=== PATIENT | female | born 1945 | race Asian ===

== ENCOUNTER 2017-06-27 10:23 | Observation (INO) | payer MEDICARE ==
[~2017-06-27] VITALS: Ht 160 cm; Wt 70.0 kg
[2017-06-27] VITALS (8 sets, daily range): BP systolic 113–146; BP diastolic 63–70; PULSE 72–79; RESP 16–20; TEMP 98.4–98.8; O2SAT 93–100
[~2017-06-27 10:23] MED LIST: AMLO10 PO; COZA25TA PO; GEMF600 PO; GEMF600T PO; GLUCTAB2 PO; LEVO112T2 PO; METO50TA PO; PANT40TA3 PO; RALO1TAB PO; REST0.05 EACH EYE; TEMA15CA PO; ZOFR4TAB PO
--- NOTE | 2017-06-27 10:55 | PD ---
HPI Chief Complaint: Dizziness Time Seen by Provider: 10:55 Travel History International Travel<30 days: No Contact w/Intl Traveler<30days: No Traveled to known affect area: No History of Present Illness HPI 71-year-old female came to the emergency room with history of intense dizziness that started at around 7:30 to 8 AM. Patient says she woke up at 5:00 and at that time she was fine. She waited for 45 minutes for it to get better but when it didn't she called 911. She has been nauseous but no vomiting. Vital signs are stable. She has had similar symptoms in the past but never had to come to the emergency room. She was able to answer questions appropriately. Vital signs are stable. A stroke alert was called by me since she was within the time window for TPA. PFSH Past Medical History Narrative Medical List of her past medical, surgical, social and family history was reviewed from the nursing note. Blood Disorders: No Depression: Yes Cardiovascular Problems: Yes Diabetes: Yes Diminished Hearing: No Fibromyalgia: Yes GERD: Yes Genitourinary: Yes (BLADDER PROLAPSE) Hypertension: Yes Thyroid Disease: Yes Triglycerides - High: Yes ?: Not Menopausal: Yes Past Surgical History Gynecologic Surgery: Yes (MASTECTOMY RIGHT LEFT LUMPECTOMY) Mastectomy: Yes Social History Alcohol Use: No Tobacco Use: No Substance Use: No Allergies-Medications (Allergen,Severity, Reaction): Coded Allergies: codeine (Unverified Adverse Reaction, Unknown, SENSITIVE, 06/28/17) Comments List of her allergies reviewed from the nursing note. Reported Meds & Prescriptions Reported Meds & Active Scripts Active Reported Norvasc (Amlodipine Besylate) 10 Mg Tab 10 Mg PO DAILY Restasis Opth 0.05% (Cyclosporine Opth 0.05%) 0.05% Emul 1 Drop EACH EYE BID Gemfibrozil 600 Mg Tab 600 Mg PO BIDAC Take 30 minutes prior to breakfast and dinner. Levothyroxine (Levothyroxine Sodium) 112 Mcg Tab 112 Mcg PO DAILY Cozaar (Losartan Potassium) 25 Mg Tab 25 Mg PO DAILY Glucophage XR (Metformin HCl) 750 Mg Floyd 1,500 Mg PO DAILY With evening meal Metoprolol Tartrate 50 Mg Tab 50 Mg PO BID Zofran (Ondansetron HCl) 4 Mg Tab 4 Mg PO Q6HR PRN Pantoprazole (Pantoprazole Sodium) 40 Mg Tab 40 Mg PO DAILY Raloxifene (Raloxifene HCl) 60 Mg Tab 60 Mg PO DAILY Temazepam 15 Mg Cap 15 Mg PO HS PRN Narrative Medication List of her home medications reviewed from the nursing note. Review of Systems Except as stated in HPI: all other systems reviewed are Neg Physical Exam Narrative GENERAL: Awake, alert, anxious SKIN: Focused skin assessment warm/dry. HEAD: Atraumatic. Normocephalic. EYES: Pupils equal and round. No scleral icterus. No injection or drainage. ENT: No nasal bleeding or discharge. Mucous membranes pink and moist. NECK: Trachea midline. No JVD. CARDIOVASCULAR: Regular rate and rhythm. No murmur appreciated. RESPIRATORY: No accessory muscle use. Clear to auscultation. Breath sounds equal bilaterally. GASTROINTESTINAL: Abdomen soft, non-tender, nondistended. Hepatic and splenic margins not palpable. MUSCULOSKELETAL: No obvious deformities. No clubbing. No cyanosis. No edema. NEUROLOGICAL: Awake and alert. No obvious cranial nerve deficits. Left upper and lower extremity ataxia. Normal speech. NIH stroke score of 2 PSYCHIATRIC: Appropriate mood and affect; insight and judgment normal. Data Data Last Documented VS Vital Signs Date Time Temp Pulse Resp B/P Pulse Ox O2 Delivery O2 Flow Rate FiO2 06/27/17 12:37 79 16 146/70 99 Nasal Cannula 2 06/27/17 10:26 98.8 Orders Activity Bed Rest (06/27/17 ) I-Stat Creatinine (06/27/17 11:30) I-Stat Profile (06/27/17 11:30) Prothrombin Time / Inr (Pt) (06/27/17 11:30) Act Partial Throm Time (Ptt) (06/27/17 11:30) Complete Blood Count With Diff (06/27/17 11:30) Fibrinogen (06/27/17 11:30) Creatine Kinase (Cpk) (06/27/17 11:30) Troponin I (06/27/17 11:30) Ua Includes Microscopic (06/27/17 11:30) Drug Screen, Random Urine (06/27/17 11:30) Type And Screen (06/27/17 11:30) Ct Brain W/O Iv Contrast(Rout) (06/27/17 ) Consult Neurology (06/27/17 ) Blood Glucose (06/27/17 11:30) Ecg Monitoring (06/27/17 11:30) Neuro Checks Q2HX12,Q4H (06/27/17 11:30) Iv Access Insert/Monitor (06/27/17 11:30) NPO (06/27/17 11:30) Oximetry (06/27/17 11:30) Oxygen Administration (06/27/17 11:30) Sodium Chlor 0.9% 1000 Ml Inj (Ns 1000 M (06/27/17 11:30) Resp Oxygen Amor C Titrat 1-4 L (06/27/17 11:30) Cath For Specimen (06/27/17 11:30) (Hub Use Only)Inp Phy Cons/Ref (06/27/17 ) Mra Brain W/O Contrast (Cow) (06/27/17 ) Ondansetron Inj (Zofran Inj) (06/27/17 12:00) Meclizine (Antivert) (06/27/17 12:00) Place In Observation (06/27/17 ) Code Status (06/27/17 13:06) Vital Signs (Adult) Q4H (06/27/17 13:06) Activity Oob With Assistance (06/27/17 13:06) Wood Cut Engraver / Telemetry .CONTINUOUS (06/27/17 13:06) Diet Heart Healthy (06/27/17 Lunch) Sodium Chloride 0.9% Flush (Ns Flush) (06/27/17 13:15) Sodium Chloride 0.9% Flush (Ns Flush) (06/27/17 21:00) Acetaminophen (Tylenol) (06/27/17 13:15) Ondansetron Inj (Zofran Inj) (06/27/17 13:15) Temazepam (Restoril) (06/27/17 13:15) Basic Metabolic Panel (Bmp) (06/28/17 06:00) Complete Blood Count With Diff (06/28/17 06:00) Chest, Single Ap (06/27/17 13:06) Electrocardiogram (06/27/17 13:06) Pt Request For Service (06/27/17 13:06) Scd Bilateral/Knee High DAVID.BID (06/27/17 13:06) Naloxone Inj (Narcan Inj) (06/27/17 13:15) Magnesium Hydroxide Liq (Milk Of Magnesi (06/27/17 13:15) Meclizine (Antivert) (06/27/17 14:00) Rapid Plasma Regin (Rpr) W Ttr (06/27/17 13:09) Ammonia (06/27/17 13:09) Holter Monitor Recording (06/27/17 ) Us Carotid Arteries Comp Bilat (06/27/17 ) Aspirin Chew (Aspirin Chew) (06/28/17 09:00) Aspirin (Aspirin) (06/27/17 13:15) Admit Order (Ed Use Only) (06/27/17 13:13) Mri Brain W&W/O Contrast (06/27/17 ) Labs Laboratory Tests Test 06/27/17 06/27/17 06/27/17 11:38 11:40 11:45 White Blood Count 6.1 TH/MM3 Red Blood Count 4.56 MIL/MM3 Hemoglobin 13.6 GM/DL Bedside Hemoglobin 13.9 G/DL Hematocrit 40.3 % Bedside Hematocrit 41.0 % Mean Corpuscular Volume 88.3 FL Mean Corpuscular Hemoglobin 29.8 PG Mean Corpuscular Hemoglobin 33.7 % Concent Red Cell Distribution Width 13.9 % Platelet Count 267 TH/MM3 Mean Platelet Volume 8.0 FL Neutrophils (%) (Auto) 72.2 % Lymphocytes (%) (Auto) 19.3 % Monocytes (%) (Auto) 6.7 % Eosinophils (%) (Auto) 1.3 % Basophils (%) (Auto) 0.5 % Neutrophils # (Auto) 4.4 TH/MM3 Lymphocytes # (Auto) 1.2 TH/MM3 Monocytes # (Auto) 0.4 TH/MM3 Eosinophils # (Auto) 0.1 TH/MM3 Basophils # (Auto) 0.0 TH/MM3 CBC Comment DIFF FINAL Differential Comment Prothrombin Time 9.7 SEC Prothromb Time International 0.9 RATIO Ratio Activated Partial 29.2 SEC Thromboplast Time Fibrinogen 497 mg/dL Bedside Sodium 139 MMOL/L Bedside Potassium 4.3 MMOL/L Bedside Chloride 104 MMOL/L Bedside Blood Urea Nitrogen 22 MG/DL Bedside Creatinine 0.6 MG/DL Bedside Glucose 172 MG/DL Total Creatine Kinase 182 U/L Troponin I LESS THAN 0.02 NG/ML Urine Color LIGHT-YELLOW Urine Turbidity CLEAR Urine pH 6.0 Urine Specific [place] 1.010 Urine Protein NEG mg/dL Urine Glucose (UA) NEG mg/dL Urine Ketones NEG mg/dL Urine Occult Blood NEG Urine Nitrite NEG Urine Bilirubin NEG Urine Urobilinogen LESS THAN 2.0 MG/DL Urine Leukocyte Esterase NEG Urine RBC LESS THAN 1 /hpf Urine WBC 5 /hpf Urine Squamous Epithelial <1 /hpf Cells Urine Bacteria RARE /hpf Urine Opiates Screen NEG Urine Barbiturates Screen NEG Urine Amphetamines Screen NEG Urine Benzodiazepines Screen NEG Urine Cocaine Screen NEG Urine Cannabinoids Screen NEG Blood Type O POSITIVE Antibody Screen NEGATIVE MDM Medical Decision Making Medical Screen Exam Complete: Yes Emergency Medical Condition: Yes Medical Record Reviewed: Yes Differential Diagnosis CVA, stroke, intracranial bleed, intracranial mass Narrative Course 1:09 PM case was discussed with the neurologist Dr. Woo and as per him given the lone NIH stroke score she does not meet TPA criteria. CT scan was within normal limit. Blood test is within normal limit. Her symptoms have not worsened. I have ordered MRI and MRA and awaiting for the hospitalist to call back. 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
[2017-06-27] MEDS ORDERED: SODIUM CHLOR 0.9% 1000 ML INJ 1,000 ML IV ONE (11:30)
[2017-06-27 11:50] LABS: I-STAT POTASSIUM 4.3 MMOL/L (3.5-4.9); I-STAT SODIUM 139 MMOL/L (138-146)
--- NOTE | 2017-06-27 11:50 | RADRPT ---
EXAM DATE/TIME: 06/27/2017 11:36 [facility] COMPARISON: No previous studies available for comparison. INDICATIONS : Sudden on set of dizziness and ataxia RADIATION DOSE: 32.47 CTDIvol (mGy) This report was called to Dr. Padilla at 1142 MEDICAL HISTORY : Unable to obtain SURGICAL HISTORY : Unable to obtain ENCOUNTER: Initial ACUITY: 1 day PAIN SCALE: 0/10 LOCATION: cranial TECHNIQUE: Multiple contiguous axial images were obtained of the head. Using automated exposure control and adj ustment of the mA and/or kV according to patient size, radiation dose was kept as low as reasonably a chievable to obtain optimal diagnostic quality images. DICOM format image data is available electro nically for review and comparison. FINDINGS: CEREBRUM: The ventricles are normal for age. No evidence of midline shift, mass lesion, hemorrhage or acute in farction. No extra-axial fluid collections are seen. POSTERIOR FOSSA: The cerebellum and brainstem are intact. The 4th ventricle is midline. The cerebellopontine angle i s unremarkable. EXTRACRANIAL: The visualized portion of the orbits is intact. SKULL: The calvaria is intact. No evidence of skull fracture. CONCLUSION: Negative acute process. MRI is pending. Adolfo Marquez MD FACR on June 27, 2017 at 11:47 Board Certified Radiologist. This report was verified electronically.
[2017-06-27 11:52] LABS: AUTOMATED NEUTROPHIL # 4.4 TH/MM3 (1.8-7.7); BASOPHIL % 0.5 % (0.0-2.0); EOSINOPHIL # 0.1 TH/MM3 (0-0.4); EOSINOPHIL % 1.3 % (0.0-4.0); HEMATOCRIT 40.3 % (35.0-46.0); HEMO FLAGS DIFF FINAL; LYMPH % 19.3 % (9.0-44.0); LYMPHOCYTE # 1.2 TH/MM3 (1.0-4.8); MEAN CELL VOLUME 88.3 FL (80.0-100.0); MEAN CORPUSCULAR HEMOGLOBIN 29.8 PG (27.0-34.0); MEAN CORPUSCULAR HGB CONC 33.7 % (32.0-36.0); MONO % 6.7 % (0.0-8.0); NEUT % 72.2 % (16.0-70.0); PLATELET COUNT 267 TH/MM3 (150-450); RED BLOOD COUNT 4.56 MIL/MM3 (4.00-5.30); RED CELL DISTRIBUTION WIDTH 13.9 % (11.6-17.2); WHITE BLOOD COUNT 6.1 TH/MM3 (4.0-11.0)
[2017-06-27] MEDS ORDERED: MECLIZINE HCL 25 MG TAB PO ONE (12:00)
[2017-06-27] MEDS ORDERED: ONDANSETRON HCL 4 MG/2 ML VIAL IV PUSH ONE (12:00)
[2017-06-27 12:06] LABS: APTT (PATIENT) 29.2 SEC (24.3-30.1); INTERNATIONAL NORMALIZED RATIO 0.9 RATIO; PROTHROMBIN TIME - PATIENT 9.7 SEC (9.8-11.6)
[2017-06-27 12:11] LABS: CREATINE KINASE 182 U/L (26-192)
[2017-06-27 12:15] LABS: BACTERIA, URINE RARE /hpf; BLOOD, URINE NEG (NEG); GLUCOSE,URINE NEG (NEG); KETONE, URINE NEG (NEG); NITRITE,URINE NEG (NEG); SQUAMOUS EPITHELIAL CELL URINE <1 /hpf (0-5); URINE COLOR LIGHT-YELLOW (YELLW/STRAW)
[2017-06-27] MEDS ORDERED: SODIUM CHLORIDE 0.9% FLUSH 10 ML FLUSH IV FLUSH PRN (13:15)
[2017-06-27] MEDS ORDERED: TEMAZEPAM 15 MG CAP PO PRN (13:15)
[2017-06-27] MEDS ORDERED: ONDANSETRON HCL 4 MG/2 ML VIAL IVP PRN (13:15)
[2017-06-27] MEDS ORDERED: NALOXONE HCL 0.4 MG/ML AMP IV PRN (13:15)
[2017-06-27] MEDS ORDERED: ASPIRIN 325 MG TAB PO ONE (13:15)
[2017-06-27] MEDS ORDERED: MAGNESIUM HYDROXIDE SUSP 30 ML CUP PO PRN (13:15)
[2017-06-27] MEDS ORDERED: ACETAMINOPHEN 325 MG TAB PO PRN (13:15)
[2017-06-27] MEDS: MECLIZINE HCL 25 MG TAB PO SCH ×2 (14:00→21:30)
--- NOTE | 2017-06-27 15:27 | MB ---
cc: JESSE WOO MD DATE OF CONSULTATION: 06/27/2017 REASON FOR CONSULTATION Stroke Alert. HISTORY OF PRESENT ILLNESS Ms. Pavon is a 71-year-old female who came to the [facility] Emergency Room complaining of dizziness that started between 7:30 and 8:00 a.m. this morning. She states that she had episodes of dizziness that "come and go for years," but she feels that these were more intense and more of a spinning sensation. She waited sometime to get better but she states she did not. She denies double vision, blurred vision, speech difficulty, nausea, vomiting, weakness of an extremity.Patient has a history of breast cancer and fibromyalgia. A Stroke Alert was called as the patient was assessed by the emergency physician to have left upper and lower extremity incoordination/ ataxia. Head CT scan was unremarkable for acute intracranial pathology. However , she was not deemed a candidate for TPA given her NIH Stroke Scale to be only 2. The patient is on aspirin 81 mg daily. REVIEW OF SYSTEMS A 12-point review of systems is negative except for what is stated in the HPI. PAST MEDICAL HISTORY 1. Diabetes. 2. Depression. 3. Fibromyalgia. 4. GERD. 5. Hypertension. 6. Hypothyroidism. 7. Hypertriglyceridemia. 8. History of breast cancer, status post chemotherapy and surgery. PAST SURGICAL HISTORY 1. Right mastectomy. 2. Left lumpectomy. SOCIAL HISTORY Denies alcohol, tobacco or substance abuse. ALLERGIES CODEINE. MEDICATIONS 1. Norvasc. 2. Restasis. 3. Lopid. 4. Gemfibrozil. 5. Levothyroxine. 6. Cozaar. 7. Metoprolol. 8. Glucophage. 9. Pantoprazole. 10.Paroxetine. 11.Temazepam. PHYSICAL EXAMINATION GENERAL: Awake, alert, pleasant, good historian. HEENT: Atraumatic, normocephalic. Intact hearing. Intact vision. NECK: Supple. Trachea in the midline. No carotid bruit. HEART: Regular rate and rhythm. LUNGS: Clear to auscultation. No wheezing. ABDOMEN: Soft, nontender. EXTREMITIES: No clubbing. No cyanosis. The right middle toe is bruised, congested, swollen and cyanosed. NEUROLOGIC: Awake, alert, oriented to time, person and place. No dysarthria. No dysphasia. Intact naming. Intact repetition. Cranial nerves II through XII are grossly intact. Motor examination 5/5 upper and lower extremities. Reflexes 2+ bilateral symmetrical other than bilateral sluggish ankle reflexes. Plantars are bilaterally downgoing. [id number], and [id number] are normal. Sensation is diminished to light touch in glove and stocking distribution. PSYCHIATRIC: Appropriate mood and affect. Insight and judgment are normal. No hallucinations. LABORATORY White blood cell count 6.1, hemoglobin 13.6, platelet count 267. Sodium 139, potassium 4.3, BUN 22, creatinine 0.6, glucose 172. INR 0.9. UDS negative. IMAGING - Head CT scan without contrast was negative for an acute process. DIAGNOSTIC IMPRESSION 1. Stroke Alert. The patient was not a candidate for TPA as her NIHSS was 2, and during my assessment the patient's examination was unremarkable. 2. TIA. 3. History of diabetes mellitus. PLAN 1. Neuro-checks q.4h. 2. MRI of the brain. 3. MRA head. 4. Carotid ultrasound. 5. Telemetry. 6. Cardiac echo. 7. Aspirin 162. 8. DVT prophylaxis. 9. GI prophylaxis. Thank you for allowing me to participate in the care of your patient. Jesse Woo MD RGO/NATE /2:54 PM /3:07 PM TESS
[2017-06-27] MEDS ORDERED: GADODIAMIDE PF 287 MG/ML 5 ML VIAL (for RAD MRI) IV ONE (16:11)
--- NOTE | 2017-06-27 16:52 | RADRPT ---
EXAM DATE/TIME: 06/27/2017 15:55 [facility] COMPARISON: CT BRAIN W/O CONTRAST, June 27, 2017, 11:36. INDICATIONS : CVA. Sudden onset of dizziness and ataxia. CONTRAST: 14 cc Omniscan (gadodiamide) IV MEDICAL HISTORY : Carcinoma, breast. Hypertension. Diabetes. SURGICAL HISTORY : Mastectomy, right. Left breast lumpectomy. Sebaceous carcinoma, nose. ENCOUNTER: Subsequent ACUITY: 1 day PAIN SCORE: 3/10 LOCATION: cranial TECHNIQUE: Multiplanar, multisequence MRI of the brain was performed both prior to and following the administrat ion of paramagnetic contrast. FINDINGS: CEREBRUM: There is generalized atrophy. Ventricles are normal. No evidence of midline shift, mass lesion, hemo rrhage or acute infarction. No extraaxial fluid collections are seen. The pituitary gland and supra sellar cistern are normal in configuration. WHITE MATTER: There is scattered mild periventricular and subcortical white matter signal change bilaterally. POSTERIOR FOSSA: The cerebellum and brainstem demonstrate no acute finding. The 4th ventricle is midline. The cerebel lopontine angle is unremarkable. The cerebellar tonsils are normal in position. DIFFUSION IMAGING: No focal areas of restricted diffusion are seen. No evidence of acute infarction. EXTRACRANIAL: The visualized portions of the orbits and paranasal sinuses are unremarkable. POST-CONTRAST: No abnormal areas of parenchymal or dural enhancement. No evidence of blood-brain barrier breakdown. CONCLUSION: No acute intracranial abnormality is identified to explain the clinical symptoms. There are no findin gs to indicate recent ischemia. Yamil Carr MD on June 27, 2017 at 16:46 Board Certified Radiologist. This report was verified electronically.
--- NOTE | 2017-06-27 16:55 | RADRPT ---
EXAM DATE/TIME: 06/27/2017 14:39 [facility] COMPARISON: No previous studies available for comparison. INDICATIONS : Short of breath and fever since Tuesday. MEDICAL HISTORY : None. SURGICAL HISTORY : None. ENCOUNTER: Initial ACUITY: 2 days PAIN SCORE: 0/10 LOCATION: Bilateral chest FINDINGS: A single view of the chest demonstrates the lungs to be symmetrically aerated without evidence of mas s, infiltrate or effusion. The cardiomediastinal contours are unremarkable. Osseous structures are intact. CONCLUSION: No acute disease. Adolfo Marquez MD FACR on June 27, 2017 at 16:54 Board Certified Radiologist. This report was verified electronically.
--- NOTE | 2017-06-27 17:14 | HHI.HP ---
HPI Service [facility] Primary Care Physician Edmund Wahl Jr, MD Admission Diagnosis TIA Chief Complaint: Dizziness Travel History International Travel<30 Days: No Contact w/Intl Traveler <30 Da: No Traveled to Known Affected Are: No History of Present Illness Ms. Pavon is a 71 y/o female with HTN, BPV, diabetes, depression, fibromyalgia who presented to the ED at [facility] with complaints of dizziness that started around 7:30AM this morning. She reports that she has previously had episodes of dizziness that "come and go for years," but she felt that these episodes this morning were more intense and more of a spinning sensation. She felt like she was listing to one side when trying to walk. She waited for some time for the symptoms to get better but she states she did not so this prompted her to come to the ED for further workup. A Stroke Alert was called in the ED and the patient was reported to have left upper and lower extremity incoordination/ataxia. Head CT scan was unremarkable for acute intracranial pathology. However, she was not deemed a candidate for TPA given her NIH Stroke Scale to be only 2. She denies double vision, blurred vision, speech difficulty, nausea, vomiting, weakness of an extremity, headache, chest pain, or palpitations. The patient is on aspirin 81 mg daily. She was started on Meclizine in the ED. Head CT was negative. She is admitted for further workup and to r/o CVA. Review of Systems Constitutional: COMPLAINS OF: Dizziness, DENIES: Diaphoretic episodes, Fatigue , Fever, Chills Eyes: DENIES: Blurred vision, Vision loss Ears, nose, mouth, throat: COMPLAINS OF: Vertigo, DENIES: Hearing loss Respiratory: DENIES: Cough, Shortness of breath Cardiovascular: DENIES: Chest pain, Palpitations, Lower Extremity Edema Gastrointestinal: DENIES: Abdominal pain, Nausea, Vomiting Genitourinary: DENIES: Urinary incontinence, Urgency, Hematuria Musculoskeletal: DENIES: Back pain, Neck pain Integumentary: DENIES: Rash Neurologic: DENIES: Headache, Localized weakness, Speech Problems, Poor Balance Psychiatric: DENIES: Confusion Past Family Social History Past Medical History Diabetes mellitus, type 2 Benign positional vertigo Depression Fibromyalgia GERD Hypertension Hypothyroidism/Deniz's thyroiditis Hypertriglyceridemia Gastroparesis Osteoporosis B12 deficiency Vitamin D deficiency Vitiligo History of breast cancer, status post chemotherapy and surgery. Past Surgical History Right breast mastectomy for ductal carcinoma in 1999 Left breast lumpectomy in 1974 Cataract surgery EGD/colonoscopy Thyroid biopsy Reported Medications -Norvasc 10 Mg PO DAILY -Restasis Opth Drops 0.05% Emul 1 Drop EACH EYE BID -Lopid 600 Mg PO BIDAC -Cozaar 25 Mg PO DAILY -Glucophage XR 1,500 Mg PO DAILY With evening meal -Metoprolol Tartrate 50 Mg PO BID Zofran (Ondansetron HCl) 4 Mg Tab 4 Mg PO Q6HR PRN -Pantoprazole 40 Mg PO DAILY -Raloxifene 60 Mg PO DAILY -Temazepam 15 Mg PO HS PRN --Levothyroxine 112 Mcg PO DAILY (?100Mcg) ?Gabapentin 300Mg PO Q8H PRN Allergies: Coded Allergies: codeine (Unverified Adverse Reaction, Unknown, SENSITIVE, 06/28/17) Family History Noncontributory Social History Denies any alcohol, tobacco or illicit drug use Pt is a , her was a DO Her son is a physician Physical Exam Vital Signs Vital Signs Date Time Temp Pulse Resp B/P Pulse Ox O2 Delivery O2 Flow Rate FiO2 06/27/17 16:45 98.4 77 18 125/70 95 06/27/17 15:47 75 06/27/17 14:52 75 16 132/68 100 Room Air 06/27/17 12:37 79 16 146/70 99 Nasal Cannula 2 06/27/17 11:39 100 Nasal Cannula 2 06/27/17 11:39 100 Nasal Cannula 2 06/27/17 10:30 96 Room Air 06/27/17 10:26 98.8 79 16 146/68 98 Physical Exam GENERAL: This is a well-nourished, well-developed patient, in no apparent distress. HEENT: Atraumatic. Normocephalic. No temporal or scalp tenderness. No scleral icterus. Airway patent. No nystagmus noted NECK: Trachea midline, supple, nontender. CARDIO: Regular. RESP: CTA bilaterally. No wheezes, rales, or rhonchi. ABD: +BS, soft, non-tender, nondistended. EXT: Extremities without clubbing, cyanosis, or edema. NEURO: Awake and alert. Motor and sensory grossly within normal limits. Normal speech. Laboratory Laboratory Tests Test 8/14/17 8/14/17 8/14/17 11:38 11:40 11:45 White Blood Count 6.1 Red Blood Count 4.56 Hemoglobin 13.6 Bedside Hemoglobin 13.9 Hematocrit 40.3 Bedside Hematocrit 41.0 Mean Corpuscular Volume 88.3 Mean Corpuscular Hemoglobin 29.8 Mean Corpuscular Hemoglobin 33.7 Concent Red Cell Distribution Width 13.9 Platelet Count 267 Mean Platelet Volume 8.0 Neutrophils (%) (Auto) 72.2 Lymphocytes (%) (Auto) 19.3 Monocytes (%) (Auto) 6.7 Eosinophils (%) (Auto) 1.3 Basophils (%) (Auto) 0.5 Neutrophils # (Auto) 4.4 Lymphocytes # (Auto) 1.2 Monocytes # (Auto) 0.4 Eosinophils # (Auto) 0.1 Basophils # (Auto) 0.0 CBC Comment DIFF FINAL Differential Comment Prothrombin Time 9.7 Prothromb Time International 0.9 Ratio Activated Partial 29.2 Thromboplast Time Fibrinogen 497 Bedside Sodium 139 Bedside Potassium 4.3 Bedside Chloride 104 Bedside Blood Urea Nitrogen 22 Bedside Creatinine 0.6 Bedside Glucose 172 Total Creatine Kinase 182 Troponin I LESS THAN 0.02 Urine Color LIGHT-YELLOW Urine Turbidity CLEAR Urine pH 6.0 Urine Specific [place] 1.010 Urine Protein NEG Urine Glucose (UA) NEG Urine Ketones NEG Urine Occult Blood NEG Urine Nitrite NEG Urine Bilirubin NEG Urine Urobilinogen LESS THAN 2.0 Urine Leukocyte Esterase NEG Urine RBC LESS THAN 1 Urine WBC 5 Urine Squamous Epithelial <1 Cells Urine Bacteria RARE Urine Opiates Screen NEG Urine Barbiturates Screen NEG Urine Amphetamines Screen NEG Urine Benzodiazepines Screen NEG Urine Cocaine Screen NEG Urine Cannabinoids Screen NEG Blood Type O POSITIVE Antibody Screen NEGATIVE Result Diagram: 06/27/17 1138 Imaging Last Impressions Chest X-Ray 06/27/17 1306 Signed Impressions: Service Date/Time: Tuesday, June 27, 2017 14:39 - CONCLUSION: No acute disease. Adolfo Marquez MD FACR Head Magnetic Resonance Angiography 06/27/17 0000 Signed Impressions: Service Date/Time: Tuesday, June 27, 2017 15:55 - CONCLUSION: No acute intracranial vascular abnormality is identified. Yamil Carr MD Head CT 06/27/17 0000 Signed Impressions: Service Date/Time: Tuesday, June 27, 2017 11:36 - CONCLUSION: Negative acute process. MRI is pending. Adolfo Marquez MD FACR Brain MRI 06/27/17 0000 Signed Impressions: Service Date/Time: Tuesday, June 27, 2017 15:55 - CONCLUSION: No acute intracranial abnormality is identified to explain the clinical symptoms. There are no findings to indicate recent ischemia. Yamil Carr MD Septic Shock Reassessment Heart: Regular rate and rhythm Lungs: Clear Skin: Warm Assessment and Plan Problem List: (1) Dizziness Status: Acute Plan: - Pt is a 71 y/o female with HTN, diabetes and hx of vertigo - She was admitted to [facility] on 06/27/17 with complaints of dizziness and was noted in the ED to have some incoordination of her left UE and LE. Stroke Alert was called in the ED but the pt was not deemed appropriate for TPA. - Head CT was negative. - MRI Brain --> Negative - MRA Brain --> Negative. - Pts symptoms are most consistent with BPV - She has been started on Meclizine 25mg TID - Neurology was consulted from the ED. - Carotid US - Holter Monitor/telemetry - Neuro checks - PT evaluation, pt may benefit from Karissa Maneuvers - Check TSH/Free T4, Vitamin B12, Folate, Ammonia levels - Supportive care (2) Benign positional vertigo Status: Acute Plan: - Pt with a hx of BPV - See above. (3) HTN (hypertension) Status: Chronic Plan: - Home meds continued, Metoprolol 50mg po BID, Norvasc 10mg po daily, Cozaar 25mg po daily - Monitor (4) Diabetes Status: Chronic Plan: - Metformin resumed - Accu checks (5) Fibromyalgia Status: Chronic Assessment and Plan Patient examined. Assessment and plan formulated with Loan Thompson PA-C. I agree with the above. Problem Qualifiers (1) Benign positional vertigo: (2) Diabetes: Loan Thompson Jun 27, 2017 17:14 Beck Cannon DO Jul 03, 2017 22:46
--- NOTE | 2017-06-27 17:15 | RADRPT ---
EXAM DATE/TIME: 06/27/2017 15:55 [facility] COMPARISON: No previous studies available for comparison. INDICATIONS : CVA. MEDICAL HISTORY : Carcinoma, breast. Hypertension. Diabetes. SURGICAL HISTORY : Left breast lumpectomy. Sebaceous carcinoma, nose. ENCOUNTER: Subsequent ACUITY: 1 day PAIN SCORE: 3/10 LOCATION: cranial Please note a normal MRA of the brain does not entirely exclude the possibility of a small aneurysm, nor the possibility of distal intracranial vessel disease. TECHNIQUE: 3D time of flight MRA was performed. Source images, multiplanar STS MIP, and 3D volume MIP reconstru ctions were reviewed. FINDINGS: Anterior circulation: The internal carotid arteries demonstrate no abnormality or atherosclerotic change. A1 segment is not visualized, stable from the prior report. Intercommunicating artery is patent. ACAs are within negrita l limits. The middle cerebral artery branches demonstrate symmetric flow related enhancement. No aneu rysm or high-grade stenosis is identified. Posterior circulation: There are patent posterior cerebral arteries bilaterally. Left vertebral artery is dominant. The basi lar artery and posterior cerebral arteries demonstrate no significant stenosis or abnormality. No ane urysm is visualized. CONCLUSION: No acute intracranial vascular abnormality is identified. Yamil Carr MD on June 27, 2017 at 16:56 Board Certified Radiologist. This report was verified electronically.
--- NOTE | 2017-06-27 18:54 | EKG ---
Date Performed: 06/27/2017 Time Performed: 12:46:55 PTAGE: 71 years EKG: Baseline artifact present Sinus rhythm NORMAL ECG Compared to prior tracing no significant change PREVIOUS TRACING : 05/07/2016 10.37 DOCTOR: Gregory Agrawal Interpretating Date/Time 06/27/2017 18:52:37
--- NOTE | 2017-06-27 20:37 | RADRPT ---
EXAM DATE/TIME: 06/27/2017 19:55 [facility] COMPARISON: No previous studies available for comparison. INDICATIONS : Syncope. MEDICAL HISTORY : Hypercholesterolemia. Hypertension. Gastroesophageal reflux disease. Thyroid disease. Fibromyalgia. Diabetes. Depression. SURGICAL HISTORY : Mastectomy, right. Left lumpectomy. ENCOUNTER: Initial ACUITY: 1 day PAIN SCORE: 0/10 LOCATION: Bilateral neck PEAK SYSTOLIC VELOCITIES (cm/sec): ICA/CCA RATIO: Right: 1.0 Left: 1.0 ICA: Right: 78 Left: 80 CCA: Right: 146 Left: 85 ECA: Right: 65 Left: 87 VERTEBRAL: Right: 53 antegrade Left: 56 antegrade Elevated flow velocities and ICA/CCA ratios have been found to correlate with increased degrees of vessel stenosis, calculated as percentage of diameter relative to a normal segment of distal ICA/CCA FINDINGS: RIGHT CAROTID: No significant stenosis is visualized. The waveforms are within normal limits. LEFT CAROTID: No significant stenosis is visualized. The waveforms are within normal limits. VERTEBRAL ARTERIES: Antegrade flow is seen in both vertebral arteries. MISCELLANEOUS: None. CONCLUSION: Normal. Yamil Amin MD on June 27, 2017 at 20:35 Board Certified Radiologist. This report was verified electronically.
[2017-06-27] MEDS ORDERED: PILL SPLITTER OTHER PRN (20:45)
[2017-06-27] MEDS ORDERED: PT OWN: RESTASIS OPHTH DROPS EACH EYE SCH (21:00)
[2017-06-27] MEDS: METOPROLOL TARTRATE 50 MG TAB PO SCH (21:29)
[2017-06-27] MEDS: SODIUM CHLORIDE 0.9% FLUSH 10 ML FLUSH IV FLUSH SCH (21:30)
[2017-06-28] VITALS (8 sets, daily range): BP systolic 100–138; BP diastolic 58–66; PULSE 58–70; RESP 18; TEMP 97.8–98.8; O2SAT 92–95
[2017-06-28] MEDS ORDERED: LEVOTHYROXINE SODIUM 112 MCG TAB PO SCH (06:00)
[2017-06-28] MEDS: MECLIZINE HCL 25 MG TAB PO SCH (06:35)
[2017-06-28] MEDS ORDERED: GEMFIBROZIL 600 MG TAB PO SCH (07:00)
[2017-06-28] MEDS ORDERED: ASPIRIN 81 MG CHEW TAB CHEW SCH (09:00)
[2017-06-28] MEDS ORDERED: LOSARTAN 25 MG TAB PO SCH (09:00)
[2017-06-28] MEDS ORDERED: metFORMIN HCL 500 MG TAB PO SCH (09:00)
[2017-06-28] MEDS ORDERED: PANTOPRAZOLE SOD 40 MG DELAYED RELEASE TAB PO SCH (09:00)
[2017-06-28] MEDS ORDERED: RALOXIFENE HCL 60 MG TAB PO SCH ×2 (09:00→18:00)
[2017-06-28] MEDS: METOPROLOL TARTRATE 50 MG TAB PO SCH (09:23)
[2017-06-28] MEDS: SODIUM CHLORIDE 0.9% FLUSH 10 ML FLUSH IV FLUSH SCH (09:27)
[2017-06-28] MEDS ORDERED: ASPI81CH CHEW (09:51)
[2017-06-28] MEDS ORDERED: MECL1TAB42 PO (09:55)
--- NOTE | 2017-06-28 11:39 | HHI.PR ---
Subjective Remarks No new complaints. Pt eager for discharge to home. Objective Vitals Vital Signs Date Time Temp Pulse Resp B/P Pulse Ox O2 Delivery O2 Flow Rate FiO2 06/28/17 08:21 68 06/28/17 08:00 97.8 70 18 138/66 95 06/28/17 05:32 93 21 06/28/17 04:48 98.3 59 18 110/64 92 06/28/17 04:00 60 06/28/17 00:12 98.5 58 18 100/58 93 06/28/17 00:00 60 06/27/17 20:40 16 06/27/17 20:00 72 06/27/17 19:22 98.6 75 20 113/63 93 06/27/17 16:45 98.4 77 18 125/70 95 06/27/17 15:47 75 06/27/17 14:52 75 16 132/68 100 Room Air 06/27/17 12:37 79 16 146/70 99 Nasal Cannula 2 06/27/17 11:39 100 Nasal Cannula 2 06/27/17 11:39 100 Nasal Cannula 2 Result Diagram: 06/27/17 1138 Other Results Laboratory Tests Test 06/27/17 06/27/17 06/27/17 11:38 11:40 11:45 White Blood Count 6.1 TH/MM3 Red Blood Count 4.56 MIL/MM3 Hemoglobin 13.6 GM/DL Bedside Hemoglobin 13.9 G/DL Hematocrit 40.3 % Bedside Hematocrit 41.0 % Mean Corpuscular Volume 88.3 FL Mean Corpuscular Hemoglobin 29.8 PG Mean Corpuscular Hemoglobin 33.7 % Concent Red Cell Distribution Width 13.9 % Platelet Count 267 TH/MM3 Mean Platelet Volume 8.0 FL Neutrophils (%) (Auto) 72.2 % Lymphocytes (%) (Auto) 19.3 % Monocytes (%) (Auto) 6.7 % Eosinophils (%) (Auto) 1.3 % Basophils (%) (Auto) 0.5 % Neutrophils # (Auto) 4.4 TH/MM3 Lymphocytes # (Auto) 1.2 TH/MM3 Monocytes # (Auto) 0.4 TH/MM3 Eosinophils # (Auto) 0.1 TH/MM3 Basophils # (Auto) 0.0 TH/MM3 CBC Comment DIFF FINAL Differential Comment Prothrombin Time 9.7 SEC Prothromb Time International 0.9 RATIO Ratio Activated Partial 29.2 SEC Thromboplast Time Fibrinogen 497 mg/dL Bedside Sodium 139 MMOL/L Bedside Potassium 4.3 MMOL/L Bedside Chloride 104 MMOL/L Bedside Blood Urea Nitrogen 22 MG/DL Bedside Creatinine 0.6 MG/DL Bedside Glucose 172 MG/DL Total Creatine Kinase 182 U/L Troponin I LESS THAN 0.02 NG/ML Urine Color LIGHT-YELLOW Urine Turbidity CLEAR Urine pH 6.0 Urine Specific [place] 1.010 Urine Protein NEG mg/dL Urine Glucose (UA) NEG mg/dL Urine Ketones NEG mg/dL Urine Occult Blood NEG Urine Nitrite NEG Urine Bilirubin NEG Urine Urobilinogen LESS THAN 2.0 MG/DL Urine Leukocyte Esterase NEG Urine RBC LESS THAN 1 /hpf Urine WBC 5 /hpf Urine Squamous Epithelial <1 /hpf Cells Urine Bacteria RARE /hpf Urine Opiates Screen NEG Urine Barbiturates Screen NEG Urine Amphetamines Screen NEG Urine Benzodiazepines Screen NEG Urine Cocaine Screen NEG Urine Cannabinoids Screen NEG Blood Type O POSITIVE Antibody Screen NEGATIVE Imaging Last Impressions Chest X-Ray 06/27/17 1306 Signed Impressions: Service Date/Time: Tuesday, June 27, 2017 14:39 - CONCLUSION: No acute disease. Adolfo Marquez MD FACR Head Magnetic Resonance Angiography 06/27/17 0000 Signed Impressions: Service Date/Time: Tuesday, June 27, 2017 15:55 - CONCLUSION: No acute intracranial vascular abnormality is identified. Yamil Carr MD Head CT 06/27/17 0000 Signed Impressions: Service Date/Time: Tuesday, June 27, 2017 11:36 - CONCLUSION: Negative acute process. MRI is pending. Adolfo Marquez MD FACR Carotid Artery Ultrasound 06/27/17 0000 Signed Impressions: Service Date/Time: Tuesday, June 27, 2017 19:55 - CONCLUSION: Normal. Yamil Amin MD Brain MRI 06/27/17 0000 Signed Impressions: Service Date/Time: Tuesday, June 27, 2017 15:55 - CONCLUSION: No acute intracranial abnormality is identified to explain the clinical symptoms. There are no findings to indicate recent ischemia. Yamil Carr MD Objective Remarks General: NAD, AAOx3 Chest: CTA Cardiac: Regular Abd: +BS, soft ND/NT Ext: No edema A/P Problem List: (1) Dizziness Status: Acute Plan: - Pt is a 71 y/o female with HTN, diabetes and hx of vertigo - [place] [facility] [place] with complaints of dizziness and was noted in the ED to have some incoordination of her left UE and LE. Stroke Alert was called in the ED but the pt was not deemed appropriate for TPA. - Head CT was negative. - MRI Brain --> Negative - MRA Brain --> Negative. - Pts symptoms are most consistent with BPV - She has been started on Meclizine 25mg TID - Neurology was consulted from the ED. - Carotid US --> Normal - Holter Monitor --> pending - Telemetry with NSR overnight and this morning. - Neuro checks - PT evaluation, pt may benefit for Karissa Maneuvers - Await TSH/Free T4, Vitamin B12, Folate, Ammonia levels - Supportive care - Anticipate discharge to home later today (2) Benign positional vertigo Status: Acute Plan: - Pt with a hx of BPV - See above. (3) HTN (hypertension) Status: Chronic Plan: - Home meds continued, Metoprolol 50mg po BID, Norvasc 10mg po daily, Cozaar 25mg po daily - Monitor (4) Diabetes Status: Chronic Plan: - Metformin resumed - Accu checks (5) Fibromyalgia Status: Chronic Assessment and Plan Patient examined. Assessment and plan formulated with Loan Thompson PA-C. I agree with the above. Problem Qualifiers (1) Benign positional vertigo: (2) Diabetes: Loan Thompson Jun 28, 2017 11:39 Beck Cannon DO Jul 03, 2017 22:45
--- NOTE | 2017-06-28 11:40 | HHI.DCPOC ---
Discharge Care Plan Diagnosis: (1) Dizziness (2) Benign positional vertigo (3) HTN (hypertension) (4) Fibromyalgia (5) Diabetes Goals to Promote Your Health * To prevent worsening of your condition and complications * To maintain your health at the optimal level Directions to Meet Your Goals Take your medications as prescribed Follow your dietary instruction Follow activity as directed Keep your appointments as scheduled Take your immunizations and boosters as scheduled If your symptoms worsen call your PCP, if no PCP go to Urgent Care Center or Emergency Room Smoking is Dangerous to Your Health. Avoid second hand smoke Call the 24-hour hour crisis hotline for domestic abuse at Loan Thompson Jun 28, 2017 11:40 Beck Cannon DO Jul 03, 2017 22:46
[2017-06-28 12:11] LABS: AUTOMATED NEUTROPHIL # 3.2 TH/MM3 (1.8-7.7); BASOPHIL % 0.6 % (0.0-2.0); EOSINOPHIL # 0.1 TH/MM3 (0-0.4); EOSINOPHIL % 1.5 % (0.0-4.0); HEMATOCRIT 37.8 % (35.0-46.0); HEMO FLAGS DIFF FINAL; LYMPH % 25.1 % (9.0-44.0); LYMPHOCYTE # 1.3 TH/MM3 (1.0-4.8); MEAN CELL VOLUME 87.5 FL (80.0-100.0); MEAN CORPUSCULAR HEMOGLOBIN 29.6 PG (27.0-34.0); MEAN CORPUSCULAR HGB CONC 33.8 % (32.0-36.0); MONO % 8.5 % (0.0-8.0); NEUT % 64.3 % (16.0-70.0); PLATELET COUNT 274 TH/MM3 (150-450); RED BLOOD COUNT 4.32 MIL/MM3 (4.00-5.30)
[2017-06-28 13:02] LABS: BICARBONATE 24.4 MEQ/L (21.0-32.0)
[2017-06-28 13:04] LABS: HDL CHOLESTEROL 17.7 MG/DL (40.0-60.0); LDL CHOLESTEROL 10 MG/DL (0-99)
[2017-06-28 13:28] LABS: FREE T4 1.28 NG/DL (0.76-1.46)
[2017-06-28 16:06] LABS: HEMOGLOBIN A1b 2.2 %; HEMOGLOBIN Ao 82.4 %; HEMOGLOBIN LA1C 2.7 %; HEMOGLOBIN P3 5.7 %
--- NOTE | 2017-06-30 09:24 | HM ---
Date Performed: 06/27/2017 Time Performed: 17:16:00 HOOKUP DATE: 06/27/17 05:16:00 PM Mon ANALYSIS START TIME: 06/27/2017 5:21:00 PM ANALYSIS END TIME: 06/28/2017 12:47:49 PM PATIENT AGE: 71 PATIENT HEIGHT PATIENT WEIGHT DRUG LIST PATIENT DIAGNOSIS: dizziness TEST NARRATIVE: The patient's average heart rate was 67 BPM. No episodes of tachycardia wer e noted. Heart rates less than 50 BPM were noted 1% of the time. No pauses exceeding 2.0 seconds were noted. 12 ventricular ectopics, which represented < 1% of the total beat count, were noted. The highest ventricular ectopic frequency occurred from 06:00 AM to 07:00 AM Tue. During this time 4 VE(s) occurred. Ventricular ectopics were observed as 10 isolated beat(s) and as 1 couplet(s). N o runs were noted. 19 supraventricular ectopics, which represented < 1% of the total beat count, were noted. The highest supraventricular ectopic frequency occurred from 07:00 AM to 08:00 AM Tue. During this time 5 SVE(s) occurred. No episodes of ST depression (defined as -1.0 mm or more) wer e noted in channel 1. No episodes of ST depression (defined as -1.0 mm or more) were noted in channe l 2. No episodes of ST depression (defined as -1.0 mm or more) were noted in channel 3. TEST INTERPRETATION: 1) Sinus rhythm , no arrhythmias noted 2) No tachycardia noted. Rare bradycardia. No AV blocks/pauses noted 3) Very rare PVC/PAC 4) No ST depressions noted 5) No diary of symptoms submitted Signed by : Tej Pavon
== END 2017-06-28 15:17 | disposition home or self-care (01) ==
LOC: NEPC 10:23 → NEDA 13:15 → NEPFCDU 14:59
PROVIDERS: ADMIT Hospitalist; ATTEND Hospitalist
DX: G45.0 Vertebro-basilar artery syndrome (principal); I10 Essential (primary) hypertension; H81.10 Benign paroxysmal vertigo, unspecified ear; M79.7 Fibromyalgia; E11.43 Type 2 diabetes mellitus with diabetic autonomic (poly)neuropathy; L80 Vitiligo; E06.3 Autoimmune thyroiditis; E78.1 Pure hyperglyceridemia; K31.84 Gastroparesis; K21.9 Gastro-esophageal reflux disease without esophagitis; M81.0 Age-related osteoporosis without current pathological fracture; F32.9 Major depressive disorder, single episode, unspecified; Z79.82 Long term (current) use of aspirin; Z85.3 Personal history of malignant neoplasm of breast; Z90.11 Acquired absence of right breast and nipple; Z92.21 Personal history of antineoplastic chemotherapy
CPT/HCPCS: 70450; 70544; 70553; 71010; 80048; 80061; 80307; 81001; 82140; 82435; 82550; 82565; 82607; 82746; 82947; 83036; 84132; 84295; 84439; 84443; 84484; 84520; 85025; 85384; 85610; 85730; 86592; 86850; 86900; 86901; 93005; 93225; 93226; 93880; 96365; 96366; 96375; 97162; 99285; A9579; G0378; G8987; G8988; J2405; J7030